=== PATIENT | female | born 1970 | race American Indian/Alaskan Native ===

== ENCOUNTER 2021-06-08 08:22 | Day surgery (SDC) | payer OTHER ==
[2021-06-08 09:37] LABS: Basophils % (Auto) 0.4 % (0.0-1.8); Eosinophils # (Auto) 0.1 K/mm3 (0.0-0.4); Eosinophils % (Auto) 1.2 % (0.0-4.3); Hematocrit 32.1 % (30.3-42.9); Hemoglobin 10.5 gm/dl (10.1-14.3); Lymphocytes # (Auto) 1.4 K/mm3 (1.2-5.4); Lymphocytes % (Auto) 28.2 % (13.4-35.0); Mean Corpuscular HGB Conc 33 % (30-34); Mean Corpuscular Volume 71 fl (79-97); Monocytes # (Auto) 0.3 K/mm3 (0.0-0.8); Monocytes % (Auto) 6.1 % (0.0-7.3); Platelet Count 338 K/mm3 (140-440); Red Blood Count 4.51 M/mm3 (3.65-5.03); Red Cell Distribution Width 16.6 % (13.2-15.2)
[2021-06-08] MEDS ORDERED: SODIUM CHLORIDE 0.9% 500 ML 500 ML ONE (09:41)
[2021-06-08 10:00] LABS: Blood Urea Nitrogen 9 mg/dL (7-17); Calcium 9.4 mg/dL (8.4-10.2); Hemolysis Index 4
[2021-06-08] MEDS ORDERED: SODIUM CHLORIDE 0.9% 500 ML 500 ML IV SCH (10:00)
[2021-06-08 10:10] LABS: BUN/Creatinine Ratio 15
[2021-06-08 10:52] LABS: INR 1.04 (0.87-1.13)
[2021-06-08 10:53] LABS: Partial Thromboplastin Time 26.4 Sec. (24.2-36.6)
[2021-06-08] MEDS ORDERED: HEPARIN/NS 5000 UNIT/500ML 1,000 ML IR ONE (11:12)
[2021-06-08] MEDS: LIDOCAINE (2%) 20 MG/1 ML VIAL 20 ML MDV INFILTRATI ONE ×2 (11:38→11:50)
[2021-06-08] MEDS: MIDAZOLAM 2 MG/2 ML INJ ONE ×2 (11:38→11:50)
[2021-06-08] MEDS: fentaNYL 100 MCG/2 ML INJ ONE ×2 (11:38→11:50)
[2021-06-08] MEDS: HEPARIN 10,000 UNITS/10 ML VIAL ONE ×2 (11:38→11:52)
[2021-06-08] MEDS: VERAPAMIL 5 MG/2 ML INJ ONE ×2 (11:39→11:52)
[2021-06-08] MEDS: NITROGLYCERIN SYRINGE 3 ML ONE ×2 (11:40→11:52)
[2021-06-08] MEDS ORDERED: hydrALAZINE 20 MG/1 ML INJ ONE (12:10)
[2021-06-08] MEDS ORDERED: FUROSEMIDE 40 MG/4 ML INJ ONE (12:24)
--- NOTE | 2021-06-08 12:46 | Cardiac Catherization Report ---
DATE OF SERVICE: 06/08/2021 CARDIAC CATHETERIZATION REPORT REASON FOR PROCEDURE: Cardiomyopathy and congestive heart failure. PROCEDURES PERFORMED: 1. Left heart catheterization. 2. Selective left and right coronary angiography. 3. Left ventricular angiography. 4. Sedation time start 11:47, end 12:10. The patient was prepped and draped in a sterile fashion after informed consent. The right radial cath site was prepped and draped after negative Avinash's test. The right radial artery was entered using the Seldinger technique followed by placement of a 6-Bangladeshi hydrophilic sheath. Routine radial cocktail was administered via the sheath. Selective left and right coronary angiography was performed using #3.5 left Shashi and a # 4 right Shashi. The pigtail catheter was used for left ventricular angiography. The catheters were then removed, sheath removed and hemostasis achieved using a TR band. The patient was returned to the postprocedure unit in stable condition. There were no complications. FINDINGS: HEMODYNAMICS: Left ventricular end diastolic pressure was 36, following coronary angiography. Ascending aortic pressure was 170/104. There was no significant pressure gradient on pullback across the aortic valve. CORONARY ANGIOGRAPHY: The left main coronary artery was angiographically normal. Left anterior descending artery and its diagonal branches were angiographically normal. Circumflex artery and its obtuse marginal branches were angiographically normal. The right coronary artery was dominant and similarly angiographically normal. The left ventricle was severely dilated. There was severe left ventricular systolic dysfunction with diffuse hypokinesis, left ventricular ejection fraction 10-15%. CONCLUSION: 1. Angiographically normal coronary arteries. 2. Severe, dilated nonischemic cardiomyopathy, left ventricular ejection fraction 10-15%. RECOMMENDATIONS: Medical therapy, followed by device therapies as indicated for nonischemic cardiomyopathy. TID: [id number] RECEIPT: [id number] /EILEEN
[2021-06-08] MEDS ORDERED: traMADol 50 MG TAB PO PRN (14:10)
--- NOTE | 2021-06-08 14:17 | Discharge Summary ---
Short Stay Discharge Plan Activity: advance as tolerated Weight Bearing Status: Full Weight Bearing Diet: low fat, low cholesterol, low salt Wound: keep clean and dry Special Instructions: no heavy lifting (3 days), hold Metformin (48 hours only) Follow up with: NICOLASA NYE MD [Staff Physician] - 7 Days Forms: [facility] PCI D/C Instructions
[2021-06-08 15:06] VITALS: BP 115/85
[2021-06-08] MEDS ORDERED: SODIUM CHLORIDE 0.9% 1000 ML 1,000 ML IV SCH (15:15)
--- NOTE | 2021-06-09 10:33 | Electrocardiograph Report ---
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
== END 2021-06-08 15:45 | disposition home or self-care (01) ==
LOC: CATHLABREC 08:22
PROVIDERS: ATTEND Internal Medicine Cardiovascular Disease
DX: I42.0 Dilated cardiomyopathy (principal); I11.0 Hypertensive heart disease with heart failure; I50.9 Heart failure, unspecified; E78.00 Pure hypercholesterolemia, unspecified; E11.9 Type 2 diabetes mellitus without complications; E66.9 Obesity, unspecified; Z68.41 Body mass index [BMI] 40.0-44.9, adult; Z80.8 Family history of malignant neoplasm of other organs or systems; Z79.899 Other long term (current) drug therapy; Z79.82 Long term (current) use of aspirin; Z86.73 Personal history of transient ischemic attack (TIA), and cerebral infarction without residual deficits
CPT/HCPCS: 36415; 80048; 82962; 85025; 85610; 85730; 93005; 93458; 99156; 99157; C1894; J0360; J1644; J1940; J2250; J3010; J7040; Q9967